=== PATIENT | female | born 1980 | race African-American/Black ===

== ENCOUNTER 2016-08-23 13:58 | Emergency (ER) | payer SELFPAY ==
[~2016-08-23] VITALS: Ht 162.6 cm; Wt 70.0 kg
[~2016-08-23 13:58] MED LIST: ACET325S8 PO; FLAG250T PO
[2016-08-23 14:00] VITALS: BP 137/84; PULSE 84; RESP 15; TEMP 98.4; O2SAT 99
== END 2016-08-23 15:29 | disposition left against medical advice (07) ==
LOC: NED 13:58
DX: K08.89 Other specified disorders of teeth and supporting structures (principal)
CPT/HCPCS: 99281

== ENCOUNTER 2016-08-25 07:06 | Emergency (ER) | payer SELFPAY ==
[~2016-08-25] VITALS: Ht 162.6 cm; Wt 70.0 kg
[2016-08-25 07:10] VITALS: BP 151/72; PULSE 79; RESP 18; TEMP 97.9; O2SAT 100
--- NOTE | 2016-08-25 07:47 | PD ---
HPI Chief Complaint: Abdominal Pain Time Seen by Provider: 07:47 Travel History International Travel<30 days: No Contact w/Intl Traveler<30days: No Traveled to known affect area: No History of Present Illness HPI 36-year-old female came to the emergency room with history of nausea, vomiting and diarrhea for past 2 days. She is also complaining of toothache that started bothering her this morning. She says she's been having some body aches because of the vomiting and diarrhea. Upon asking she said there was no chance she could be since she hasn't had sex for a very long time. The tooth that has been bothering her has bothered her on and off for past few months. She has an appointment with the dentist on Tuesday. Her last vomiting and diarrhea was this morning after she woke up. Vital signs were stable. Vomitus is nonbilious. She is otherwise a healthy person. She also needed a work note she said. PFSH Past Medical History Narrative Medical List of her past medical, surgical, social and family history was reviewed from the nursing note. Cancer: Yes (CERVICAL CANCER) Diminished Hearing: No ?: Not LMP: 08/24/16 : 2 Miscarriage: 2 Past Surgical History Gynecologic Surgery: Yes (CERVICAL CA (LEEP)) Social History Alcohol Use: Yes (OCC) Tobacco Use: Yes (OCC) Substance Use: Yes (cocaine) Allergies-Medications (Allergen,Severity, Reaction): Coded Allergies: No Known Allergies (Verified , 12/31/15) Comments No known drug allergies. Reported Meds & Prescriptions Reported Meds & Active Scripts Active Amoxicillin 500 Mg Cap 500 Mg PO BID 10 Days Imodium A-D (Loperamide HCl) 2 Mg Cap 2 Mg PO Q6H PRN Zofran Odt (Ondansetron Odt) 4 Mg Tab 4 Mg SL Q6HR PRN Tylenol (Acetaminophen) 325 Mg Tab 650 Mg PO Q6HR Flagyl (Metronidazole) 250 Mg Tab 500 Mg PO Q12HR Narrative Medication List of her home medications reviewed from the nursing note. Review of Systems Except as stated in HPI: all other systems reviewed are Neg Physical Exam Narrative GENERAL: Awake, alert, mild distress SKIN: Warm and dry. HEAD: Atraumatic. Normocephalic. EYES: Pupils equal and round. No scleral icterus. No injection or drainage. ENT: No nasal bleeding or discharge. Mucous membranes pink and moist. Poor dental hygiene. #13 and 14 teeth was tender to touch. #13 was cracked. The gum is slightly swollen and tender to touch but no fluctuance. NECK: Trachea midline. No JVD. CARDIOVASCULAR: Regular rate and rhythm. No murmur appreciated. RESPIRATORY: No accessory muscle use. Clear to auscultation. Breath sounds equal bilaterally. GASTROINTESTINAL: Abdomen soft, non-tender, nondistended. Hepatic and splenic margins not palpable. MUSCULOSKELETAL: No obvious deformities. No clubbing. No cyanosis. No edema. NEUROLOGICAL: Awake and alert. No obvious cranial nerve deficits. Motor grossly within normal limits. Normal speech. PSYCHIATRIC: Appropriate mood and affect; insight and judgment normal. Data Data Last Documented VS Vital Signs Date Time Temp Pulse Resp B/P Pulse Ox O2 Delivery O2 Flow Rate FiO2 08/25/16 07:10 97.9 79 18 151/72 100 Room Air Orders Ondansetron Odt (Zofran Odt) (08/25/16 08:00) Loperamide (Imodium) (08/25/16 08:00) [facility] Medical Decision Making Medical Screen Exam Complete: Yes Emergency Medical Condition: Yes Medical Record Reviewed: Yes Differential Diagnosis Viral illness, toothache, fractured tooth Narrative Course 8:08 AM patient was given Zofran ODT and Imodium here. She will go home with prescriptions and work note. Procedures EKG Prior to Arrival: No Diagnosis Primary Impression: Acute gastroenteritis Additional Impressions: Dentalgia Gingivitis Referrals: Primary Care Physician 2 days Departure Forms: Tests/Procedures, Work Release Enter return to work date: Aug 26, 2016 Additional Instructions: Please return to the ER if the condition worsens or any other new concerns. Otherwise follow-up with her primary care. Med/Other Pt SpecificInfo: Prescription(s) given Scripts Amoxicillin 500 Mg [id number] Mg PO BID 10 Days Ref 0 Prov:Nikhil Li MD 08/25/16 Loperamide (Imodium A-D)2 Mg Cap2 Mg PO Q6H PRN (DIARRHEA) #15 CAP Ref 0 Prov:Nikhil Li MD 08/25/16 Ondansetron Odt (Zofran Odt)4 Mg Tab4 Mg SL Q6HR PRN (Nausea/Vomiting) #15 TAB Ref 0 Prov:Nikhil Li MD 08/25/16 Disposition: 01 DISCHARGE HOME Condition: Stable Nikhil Li MD Aug 25, 2016 07:47
[2016-08-25] MEDS ORDERED: ONDANSETRON ODT 4 MG TAB PO ONE (08:00)
[2016-08-25] MEDS ORDERED: LOPERAMIDE HCL 2 MG CAP PO ONE (08:00)
[2016-08-25] MEDS ORDERED: LOPE7.5C PO (08:11)
[2016-08-25] MEDS ORDERED: AMOX500C PO (08:11)
[2016-08-25] MEDS ORDERED: ZOFR4TAB3 SL (08:11)
== END 2016-08-25 08:50 | disposition home or self-care (01) ==
LOC: NEPC 07:06
DX: K52.9 Noninfective gastroenteritis and colitis, unspecified (principal); K08.89 Other specified disorders of teeth and supporting structures; K05.10 Chronic gingivitis, plaque induced; M79.1 Myalgia; Z72.0 Tobacco use; Z85.41 Personal history of malignant neoplasm of cervix uteri
CPT/HCPCS: 99283

== ENCOUNTER 2016-09-03 07:29 | Emergency (ER) | payer SELFPAY ==
[~2016-09-03] VITALS: Ht 162.6 cm; Wt 70.0 kg
[~2016-09-03 07:29] MED LIST changes: +AMOX500C PO; +LOPE7.5C PO; +ZOFR4TAB3 SL
[2016-09-03 07:31] VITALS: BP 180/94; PULSE 102; RESP 17; TEMP 98.4; O2SAT 95
--- NOTE | 2016-09-03 07:43 | PD ---
HPI . sore throat for 2 days Chief Complaint: ENT Complaint Time Seen by Provider: 07:42 Travel History International Travel<30 days: No Contact w/Intl Traveler<30days: No Traveled to known affect area: No History of Present Illness HPI 36-year-old female here with complaints of sore throat and difficulty eating. Patient was here on August 24, 2016 and seen for gastroenteritis, dentalgia and gingivitis. She was given amoxicillin, which she tells me is not working. She is here requesting different medications. She tells me that she does have an appointment with the dentist, but has to go through human services to get all of that taken care of. She denies any fever or chills. She has no other complaints. PFSH Past Medical History Cancer: Yes (CERVICAL CANCER) Diminished Hearing: No ?: Not LMP: 07/2016 : 2 Miscarriage: 2 Past Surgical History Gynecologic Surgery: Yes (CERVICAL CA (LEEP)) Social History Alcohol Use: Yes (OCC) Tobacco Use: Yes (OCC) Substance Use: Yes (cocaine) Allergies-Medications (Allergen,Severity, Reaction): Coded Allergies: No Known Allergies (Verified , 09/03/16) Reported Meds & Prescriptions Reported Meds & Active Scripts Active Ibuprofen 800 Mg Tab 800 Mg PO TID Clindamycin (Clindamycin HCl) 150 Mg Cap 450 Mg PO Q8HR 7 Days Amoxicillin 500 Mg Cap 500 Mg PO BID 10 Days Imodium A-D (Loperamide HCl) 2 Mg Cap 2 Mg PO Q6H PRN Zofran Odt (Ondansetron Odt) 4 Mg Tab 4 Mg SL Q6HR PRN Tylenol (Acetaminophen) 325 Mg Tab 650 Mg PO Q6HR Flagyl (Metronidazole) 250 Mg Tab 500 Mg PO Q12HR Review of Systems General / Constitutional: No: Fever Eyes: No: Visual changes HENT: Positive: Sore Throat, Dental Difficulties, No: Headaches, Gingival Bleeding Cardiovascular: No: Chest Pain or Discomfort Respiratory: No: Shortness of Breath Gastrointestinal: No: Abdominal Pain Genitourinary: No: Dysuria Musculoskeletal: No: Pain Skin: No Rash Neurologic: No: Weakness Psychiatric: No: Depression Endocrine: No: Polydipsia Hematologic/Lymphatic: No: Easy Bruising Physical Exam Narrative GENERAL: AAO x 3, no acute distress, Well-nourished, well-developed patient. SKIN: Warm and dry. No visible rashes or bruising. HEAD: Normocephalic and atraumatic. EYES: No scleral icterus. No injection or drainage. ENT: No nasal drainage noted. Mucous membranes pink. Airway patent. Mild posterior pharynx erythema without exudates or edema. Inflamed gums. Uvula is midline. NECK: Supple, trachea midline. No JVD. No lymphadenopathy. CARDIOVASCULAR: Regular rate and rhythm without murmurs, gallops, or rubs. RESPIRATORY: Breath sounds equal bilaterally. No accessory muscle use. No rhonchi or rales. GASTROINTESTINAL: Abdomen soft, non-tender, nondistended. EXTREMITIES: No cyanosis or edema. BACK: Nontender without obvious deformity. No CVA tenderness. PSYCH: AAO x 3, normal affect. Data Data Last Documented VS Vital Signs Date Time Temp Pulse Resp B/P Pulse Ox O2 Delivery O2 Flow Rate FiO2 09/03/16 07:31 98.4 102 17 180/94 95 MDM Medical Decision Making Medical Screen Exam Complete: Yes Emergency Medical Condition: Yes Medical Record Reviewed: Yes (08/25/16 given amoxicillin for dental issues) Differential Diagnosis dentalgia, gingivitis, pharyngitis Narrative Course 36-year-old female here with complaints of sore throat and difficulty eating. Patient was here on August 24, 2016 and seen for gastroenteritis, dentalgia and gingivitis. She was given amoxicillin, which she tells me is not working. She is here requesting different medications. She tells me that she does have an appointment with the dentist, but has to go through human services to get all of that taken care of. She denies any fever or chills. She has no other complaints. Patient seen and examined. She appears to have recurring gingivitis, dentalgia and a case of possible viral pharyngitis. I do not suspect strep therefore I will not proceed with any type of rapid strep testing in the ED. She has been on amoxicillin for several days and has not been responding well. I will change her medication to clindamycin. I explained to her that clindamycin has better oral coverage. However I did discuss the associated cost of this medication. She will check with human services for assistance with her prescription. I've advised her that she will need to see a dentist for further care and treatment. She verbalized understanding and told me that she is trying to get all that taken care of through human services. I advised follow-up with the primary care provider and ear nose and throat if she continues to have difficulty swallowing. Patient verbalized understanding of instructions, questions were answered, and thanked me for their care. I advised them if their condition worsens, please return to the nearest emergency room for further care. Diagnosis Primary Impression: Dentalgia Additional Impressions: Gingivitis Acute pharyngitis Qualified Code: J02.9 - Acute pharyngitis, unspecified etiology Patient Instructions: Dental Caries (ED), General Instructions, Gingivitis (ED) , Pharyngitis (ED) Additional Instructions: Please return to emergency department if your symptoms return or worsen. Follow up with your primary care provider. Take medications as prescribed. As we discussed, clindamycin is not a free medication. Please try to follow up with human services to help you get this prescription filled. Please see the dentist as soon as possible. Med/Other Pt SpecificInfo: Prescription(s) given Scripts Ibuprofen 800 Mg [id number] Mg PO TID #21 TAB Prov:Cedrick Johnson MD 09/03/16 Clindamycin 150 Mg [id number] Mg PO Q8HR 7 Days Ref 0 Prov:Cedrick Johnson MD 09/03/16 Disposition: 01 DISCHARGE HOME Condition: Stable Sheila Katz Sep 03, 2016 07:43
[2016-09-03] MEDS ORDERED: CLIN1CAP5 PO ×2 (07:51→07:52)
[2016-09-03] MEDS ORDERED: IBUP800T23 PO (07:52)
== END 2016-09-03 08:02 | disposition home or self-care (01) ==
LOC: NEPK 07:29
DX: K08.89 Other specified disorders of teeth and supporting structures (principal); K05.10 Chronic gingivitis, plaque induced; J02.9 Acute pharyngitis, unspecified; Z72.0 Tobacco use; Z85.41 Personal history of malignant neoplasm of cervix uteri
CPT/HCPCS: 99282